=== PATIENT | female | born 1945 | race Two or more races ===

== ENCOUNTER 2017-03-09 17:26 | Emergency (ER) | payer MEDICARE, MEDICAID ==
[~2017-03-09 17:26] MED LIST: ACID CONTROL PO; AMITIZA24 MCG PO; AMITRIPTYLINE H25 M1 PO; ASPIRIN81 M1 PO; ATIVAN1 M1 PO; AUGMENTIN600 MG/52 PO; BYSTOLIC10 M1 PO; CATAPRES0.3 MG PO; CIPRODEX OTIC7.5 M1 OT; CLONIDINE HCL0.1 MG PO; CRESTOR10 MG PO; CRESTOR5 MG/TAB PO; CYPROHEPTADINE H4 M1 PO; DICLOFENAC SODI50 M1 PO; EDARBI80 MG PO; FAMOTIDINE40 M3 PO; GABAPENTIN100 M1 PO; GABAPENTIN100 MG PO; HYDROCODON-ACE1 EA16 PO; HYDROXYZINE HCL25 M1 PO; LACTULOSE10 G/15 ML PO; LAXATIVE SUPPOS10 MG RC; LEVAQUIN500 M1 PO; LIDODERM30 EA TP; LINZESS PO; LINZESS290 MC1 PO; LISINOPRIL10 M1 PO; MECLIZINE HCL25 M3 PO; MELOXICAM15 M1 PO; NAPROXEN500 M1 PO; OXYBUTYNIN CHLOR5 MG PO; OXYCODONE HCL5 M1 PO; OXYCODONE-ACET1 EAC3 PO; PREDNISONE10 MG PO; PROCTOZONE-HC30 G2 TP; PROPRANOLOL HCL10 M1 PO; PROPRANOLOL HCL10 MG PO; PROPRANOLOL HCL20 M2 PO; PROPRANOLOL PO; PROTONIX40 M1 PO; RULOX SUSPENSI355 M2 PO; SIMVASTATIN10 M1 PO; SPIRONOLACTONE25 M1 PO; SYNTHROID100 MC1 PO; SYNTHROID112 MC1 PO; SYNTHROID125 MCG PO; TRAMADOL HCL50 M2 PO; TYLENOL #31 TA1 PO; VITAMIN D250000 UNI1 PO; VITAMIN D50000 UNIT PO; ZOFRAN4 M2 PO
[2017-03-09] MEDS ORDERED: OMEPRAZOLE20 M3 PO (17:59)
[2017-03-09] MEDS ORDERED: MIRALAX17 G2 PO (18:00)
[2017-03-09] MEDS ORDERED: SYNTHROID88 MC1 PO (18:01)
[2017-03-09 19:27] LABS: BASO % 0.9 % (0-2); BASO ABSOLUTE COUNT 0.1 tho/cmm (0.0-0.2); EOS % 2.1 % (0-7); EOSINOPHIL ABSOLUTE COUNT 0.1 tho/cmm (0.0-0.7); HCT-HEMATOCRIT 39.5 % (34.0-49.0); HGB-HEMOGLOBIN 13.6 gm/dl (12.0-15.5); IMMATURE GRANULOCYTES ABSOLUTE 0.01 tho/cmm (0-0.03); IMMATURE GRANULOCYTES PERCENT 0.2 % (0-0.3); LYMPH % 43.3 % (20-45); LYMPH ABSOLUTE COUNT 2.9 tho/cmm (0.8-4.5); MCH (MEAN CORPUSCULAR HGB) 28.9 pg (28.0-32.0); MCHC MEAN CORPUSCULAR HGB CONC 34.4 % (32.0-36.0); MCV (MEAN CELL VOLUME) 83.9 fl (82.0-96.0); MEAN PLATELET VOLUME 9.8 cmc (9.4-12.4); MONO % 5.4 % (0-12); MONOCYTE ABSOLUTE COUNT 0.4 tho/cmm (0.0-1.2); NEUTROPHIL ABSOLUTE COUNT 3.2 tho/cmm (1.6-8.0); NEUTROPHIL-AUTOMATED 3.2 tho/cmm (1.6-8.0); NEUTROPHILS % 48.1 % (40-80); PLATELET COUNT 258 tho/cmm (150-450); RED BLOOD COUNT 4.71 mil/cmm (4.00-5.20); RED CELL DISTRIBUTION WIDTH 12.4 % (12.4-16.4); WHITE BLOOD COUNT 6.7 tho/cmm (4.0-10.0)
[2017-03-09 19:39] LABS: ALB/GLOB RATIO 0.9 (0.8-2.0); ALBUMIN 3.7 g/dl (3.5-5.0); ALKALINE PHOSPHATASE 124 U/L (33-138); ALT/SGPT 26 U/L (12-78); ANION GAP 12 mmol/L (0-20); AST/SGOT 18 U/L (10-40); BILIRUBIN,TOTAL 0.5 mg/dl (0-1.5); BLOOD UREA NITROGEN 9 mg/dl (6-24); CALCIUM 9.2 mg/dl (8.5-10.5); CARBON DIOXIDE-VENOUS 25 mmol/L (22-32); CHLORIDE 104 mmol/l (96-110); CREATININE 1.05 mg/dl (0.50-1.10); GLUCOSE 117 mg/dL (70-110); LIPASE 99 U/L (73-393); POTASSIUM 3.7 mmol/L (3.7-5.1); SODIUM 137 mmol/L (135-145); eGFR VALUE FOR BLACK 61 mL/Min
== END 2017-03-09 20:27 ==
LOC: EDMED 17:26
PROVIDERS: Emergency Medicine
DX: K59.00 Constipation, unspecified (principal); F41.9 Anxiety disorder, unspecified; F32.9 Major depressive disorder, single episode, unspecified; Z79.899 Other long term (current) drug therapy
CPT/HCPCS: J2060